=== PATIENT | male | born 1950 | race Two or more races ===

== ENCOUNTER 2019-02-16 06:28 | Day surgery (SDC) | payer MEDICARE, OTHER ==
[~2019-02-16] VITALS: Ht 177.8 cm; Wt 89.8 kg
[2019-02-16] VITALS (7 sets, daily range): BP systolic 103–117; BP diastolic 64–81
--- NOTE | 2019-02-16 06:58 | Anethesia Preoperative Eval ---
Anesthesia Pre-op PMH/ROS General Date of Evaluation: Feb 16, 2019 Time of Evaluation: 06:57 Anesthesiologist: yonas ASA Score: ASA 3 Mallampati Score Class I : Soft palate, uvula, fauces, pillars visible Class II: Soft palate, uvula, fauces visible Class III: Soft palate, base of uvula visible Class IV: Only hard plate visible Mallampati Classification: Class II Surgeon: adalberto Diagnosis: colon screening Surgical Procedure: colonoscopy Social History: smoking - former smoker Family History: no anesthesia problems Allergies: Coded Allergies: No Known Allergies (Unverified , 02/16/19) Medications: see eMAR Patient NPO?: Yes Past Medical History Cardiovascular: Reports: HTN Gastrointestinal/Genitourinary: Reports: GERD Endocrine: Reports: DM Anesthesia Pre-op Phys. Exam Physician Exam Last Vital Signs Date Time Temp Pulse Resp B/P (MAP) Pulse Ox O2 Delivery O2 Flow Rate FiO2 02/16/19 07:21 Room Air 02/16/19 07:12 97.3 77 18 117/69 94 Constitutional: NAD Neurologic: CN 2-12 intact Cardiovascular: RRR Respiratory: CTA Gastrointestinal: S/NT/ND Airway Exam Mallampati Score: Class II MO: full Neck: flexible TMD: 2fb ROM: full Anesthesia Pre-op A/P Risk Assessment & Plan Assessment: asa3 Plan: mac Status Change Before Surgery: No Pre-Antibiotics Drug: Kate Mortno MD Feb 16, 2019 06:58
[2019-02-16] MEDS ORDERED: LR 1000ml ONE (07:00)
[2019-02-16] MEDS ORDERED: Propofol 200mg/20ml IV ONE (07:00)
[2019-02-16] MEDS ORDERED: Lidocaine 1% MPF 10mg/ml 5ml ONE (07:00)
[2019-02-16] MEDS ORDERED: JANUVIA25 MG ORAL (07:09)
[2019-02-16] MEDS ORDERED: METFORMIN HCL1000 M1 ORAL (07:09)
[2019-02-16] MEDS ORDERED: NEXIUM20 MG ORAL (07:09)
[2019-02-16] MEDS ORDERED: LR 1000ml 1,000 ML IVLG SCH (07:25)
[2019-02-16] MEDS ORDERED: Atropine Inj 1mg/10ml Syr IV PRN (07:30)
[2019-02-16] MEDS ORDERED: DiphenhydrAMINE 50mg/ml Inj IVP PRN (07:30)
[2019-02-16] MEDS ORDERED: Midazolam 2mg/2ml Inj IVP PRN (07:30)
[2019-02-16] MEDS ORDERED: fentaNYL 100 mcg/2 mL IV PRN (07:30)
--- NOTE | 2019-02-16 07:30 | Short Stay Surgery H&P ---
History of Present Illness History of Present Illness Chief Complaint see typed report HPI Nabor Espinoza is a 68 year old male who was admitted on for Screening Patient History Allergies: Coded Allergies: No Known Allergies (Unverified , 02/16/19) Medication History Scheduled Esomeprazole Magnesium (Nexium), 20 MG ORAL DAILY, (Reported) Metformin Hcl* (Metformin Hcl*), 1,000 MG ORAL BID, (Reported) Sitagliptin* (Januvia*), 25 MG ORAL DAILY, (Reported) Physical Exam Vital Signs Last Vital Signs Date Time Temp Pulse Resp B/P (MAP) Pulse Ox O2 Delivery O2 Flow Rate FiO2 02/16/19 07:21 Room Air 02/16/19 07:12 97.3 77 18 117/69 94 Plan Attestation Are the patient's medical conditions optimized for surgery? Christ Bray MD Feb 16, 2019 07:30
--- NOTE | 2019-02-16 07:30 | Pre-Procedure Note/Attestation ---
Pre-Procedure Note/Attestation Complete Prior to Procedure Planned Procedure: not applicable Procedure Narrative: colon Indications for Procedure Pre-Operative Diagnosis: screen Attestation I attest that I discussed the nature of the procedure; its benefits; risks and complications; and alternatives (and the risks and benefits of such alternatives ), prior to the procedure, with the patient (or the patient's legal utility sales representative). I attest that, if there was a reasonable possibility of needing a blood transfusion, the patient (or the patient's legal utility sales representative) was given the [facility] standardized written summary, pursuant to the Hardy Nadir Blood Safety Act ([place] Health and Safety Code # 1645, as amended). I attest that I re-evaluated the patient just prior to the surgery and that there has been no change in the patient's H&P, except as documented below: Christ Bray MD Feb 16, 2019 07:30
--- NOTE | 2019-02-16 07:56 | Endoscopy Procedure Note ---
Endoscopy Procedure Note General Indication for Procedure: screen Procedures Performed: colonoscopy Operative Findings/Diagnosis: diverticulosis, apparent tatoo ranjana at 2 cm Specimen: none Pt Tolerated Procedure Well: Yes Estimated Blood Loss: none Anesthesia Anesthesiologist: Yasmany zazueta Anesthesia: MAC, moderate sedation Medications Medication Given: see anesthesia record Inserted Devices Implant(s) used?: No GI Core Measures 50 yrs or older w/o bx or poly: Not Applicable 10yrs. F/U recommended: Not Applicable Christ Bray MD Feb 16, 2019 07:56
--- NOTE | 2019-02-16 08:01 | Brief Operative Note ---
Immediate Post Operative Note Operative Note Chief Complaint: screening Pre-op Diagnosis: screen Procedure: colon Post-op Diagnosis: diverticulosis Surgeon: adalberto Anesthesiologist: Yasmany zazueta Anesthesia: MAC Specimen: none Complications: yes Condition: stable Fluids: per anesthesia Implant(s) used?: No Christ Bray MD Feb 16, 2019 08:01
--- NOTE | 2019-02-16 08:14 | Immediate Post-Op Evaluation ---
Immediate Post-Op Evalulation Immediate Post-Op Evalulation Procedure: colonoscopy Date of Evaluation: Feb 16, 2019 Time of Evaluation: 08:14 IV Fluids: 200ml lr Blood Products: none Estimated Blood Loss: negligible Blood Pressure Systolic: 107 Blood Pressure Diastolic: 81 Pulse Rate: 77 Respiratory Rate: 18 O2 Sat by Pulse Oximetry: 95 Temperature (Fahrenheit): 97.7 Pain Score (1-10): 0 Nausea: No Vomiting: No Complications none Patient Status: awake, reacts, patent Hydration Status: adequate Drug: Kate Morton MD Feb 16, 2019 08:14
--- NOTE | 2019-02-16 08:16 | 48 Hour Post Anesthesia Eval ---
Post Anesthesia Evaluation Procedure: colonoscopy Date of Evaluation: Feb 16, 2019 Time of Evaluation: 08:16 Blood Pressure Systolic: 108 0: 75 Pulse Rate: 77 Respiratory Rate: 18 Temperature (Fahrenheit): 97.7 O2 Sat by Pulse Oximetry: 96 Airway: patent Nausea: No Vomiting: No Pain Intensity: 0 Hydration Status: adequate Cardiopulmonary Status: stable Mental Status/LOC: patient returned to baseline Post-Anesthesia Complications: none Follow-up care needed: N/A Kate Epps MD Feb 16, 2019 08:16
--- NOTE | 2019-02-17 11:54 | Operative Note - Dictated ---
DATE OF OPERATION: 02/16/2019 GASTROENTEROLOGY PROCEDURE REPORT PROCEDURE: Screening colonoscopy. SURGEON: Christ Bray M.D. ANESTHESIOLOGIST: Kate Fuentes M.D. PRE-ENDOSCOPIC DIAGNOSIS: Screening. POST-ENDOSCOPIC DIAGNOSIS: Left-sided diverticulosis. DESCRIPTION OF PROCEDURE: The procedure, its risks, indications, alternatives, and possible complications were explained and informed consent was obtained. The patient was then sedated and a rectal exam was done. The diagnostic colonoscope was introduced into the rectum and advanced to the cecum and then 10 cm into the terminal ileum. The colonoscope was then gradually withdrawn and the mucosa examined carefully. Examination of the terminal ileum and the mucosa did not reveal any abnormalities. There were no polyps or masses seen in the colon. There was [id number] left-sided diverticulosis, worsened in the sigmoid colon. There was also bluish tattoo ranjana like discoloration in the sigmoid colon at 25 cm. Retroflexed view of the rectum was unremarkable. The colonoscope was removed and the patient was sent to recovery in good condition. COMPLICATIONS: None. RECOMMENDATIONS: 1. High-fiber diet. 2. Outpatient followup. Christ Bray M.D. DR: TOM JOB#: [id number] CC:
== END 2019-02-16 09:05 | disposition home or self-care (01) ==
LOC: GAS 06:28
DX: Z12.11 Encounter for screening for malignant neoplasm of colon (principal); K57.90 Diverticulosis of intestine, part unspecified, without perforation or abscess without bleeding; Z79.84 Long term (current) use of oral hypoglycemic drugs; Z79.899 Other long term (current) drug therapy; Z87.891 Personal history of nicotine dependence; I10 Essential (primary) hypertension; K21.9 Gastro-esophageal reflux disease without esophagitis
CPT/HCPCS: 82962; 94003; 94150